=== PATIENT | female | born 1980 | race African-American/Black ===

== ENCOUNTER → 2018-09-24 | Emergency (ER) | payer OTHER ==
[~2018-09-24] VITALS: Ht 175.3 cm; Wt 83.0 kg
[~2018-09-24] MED LIST: PNEU16DI2
== END | disposition left against medical advice (07) ==
LOC: ER 13:43
DX: Z53.20 Procedure and treatment not carried out because of patient's decision for unspecified reasons (principal)

== ENCOUNTER 2022-10-17 08:15 | Inpatient (IN) | payer OTHER ==
[~2022-10-17] VITALS: Ht 177.8 cm; Wt 92.5 kg
[2022-10-17] MEDS ORDERED: IRON PO (10:56)
[2022-10-19] MEDS ORDERED: IRON236 MG (13:38)
[2022-10-22] MEDS ORDERED: IBU800 MG PO (14:23)
[2022-10-22] MEDS ORDERED: SURFAK240 M1 PO (14:23)
== END 2022-10-22 14:48 | disposition home or self-care (01) | DRG 743 ==
LOC: OB/GYN 10-19 06:22 → O/R 10-19 06:22 → SURH 10-19 08:15 → OB/GYN 10-19 19:29
PROVIDERS: ADMIT Obstetrics & Gynecology; ATTEND Obstetrics & Gynecology
PROC: 0UT70ZZ Resection of Bilateral Fallopian Tubes, Open Approach (ICD-10-PCS; 2022-10-19)
PROC: 0UT90ZZ Resection of Uterus, Open Approach (ICD-10-PCS; principal; 2022-10-19 08:30)
DX: D25.1 Intramural leiomyoma of uterus (principal); D25.2 Subserosal leiomyoma of uterus; N73.6 Female pelvic peritoneal adhesions (postinfective); Z20.822 Contact with and (suspected) exposure to COVID-19